=== PATIENT | male | born 1995 | race Caucasian/White ===

== ENCOUNTER 2025-02-23 21:49 | Emergency (ER) | payer SELFPAY ==
[~2025-02-23] VITALS: Ht 177.8 cm; Wt 109.0 kg
[2025-02-23 21:55] VITALS: TEMP 36.4; O2SAT 99
[2025-02-23 22:44] LABS: BASOPHILS % 0.6 % (0.0-2.0); EOSINOPHILS % 1.8 % (0.0-5.0); HEMATOCRIT. 40.7 % (42.0-52.0); HEMOGLOBIN. 13.8 g/dL (14.0-18.0); LYMPHOCYTES % 20.9 % (20.0-50.0); MEAN PLATELET VOLUME 8.9 fl (7.4-10.4); MONOCYTES % 7.2 % (2.0-8.0); NEUTROPHILS % 69.5 % (40.0-76.0); PLATELET 360 x1000/uL (130-400); RED BLOOD CELL COUNT 4.91 mill/uL (4.7-6.1); RED CELL DISTRIBUTION WIDTH 13.7 % (11.6-14.6)
[2025-02-23 23:01] LABS: CREATININE 0.8 mg/dL (0.6-1.3); UREA NITROGEN BLOOD 12 mg/dL (9-23)
[2025-02-23] MEDS: ONDANSETRON 4MG ODT PO ONE (23:13)
[2025-02-23] MEDS: MAGNESIUM/ALUMINUM HYDROXIDE/SIMETHICONE 30ML UDC PO ONE (23:13)
[2025-02-23] MEDS: DICYCLOMINE HCL 10MG CAPSULE PO ONE (23:13)
[2025-02-23 23:34] LABS: ASPARTATE AMINOTRANSFERASE 46 IU/L (<34); BILIRUBIN DIRECT 0.1 mg/dL (<=3.0); BILIRUBIN TOTAL 0.3 mg/dL (0.1-1.0); PROTEIN TOTAL 7.0 g/dL (6.0-8.3)
[2025-02-24] MEDS ORDERED: FAMO-135 MT (00:36)
[2025-02-24] MEDS ORDERED: MAG-55 MT (00:36)
[2025-02-24 00:53] VITALS: BP 127/90; PULSE 60; RESP 18; O2SAT 96
== END 2025-02-24 00:57 | disposition home or self-care (01) ==
LOC: ER 21:49
DX: K29.70 Gastritis, unspecified, without bleeding (principal)
CPT/HCPCS: 99284; 80076; 80048; 83690; 85025; 36415; Q0162

== ENCOUNTER 2025-03-22 10:31 | Emergency (ER) | payer MEDICAID ==
[~2025-03-22] VITALS: Ht 175.3 cm; Wt 108.0 kg
[~2025-03-22 10:31] MED LIST: FAMO-135 MT; MAG-55 MT
[2025-03-22 10:47] VITALS: O2SAT 99
[2025-03-22 12:08] LABS: BASOPHILS % 0.5 % (0.0-2.0); EOSINOPHILS % 1.9 % (0.0-5.0); HEMATOCRIT. 44.3 % (42.0-52.0); HEMOGLOBIN. 14.7 g/dL (14.0-18.0); LYMPHOCYTES % 15.0 % (20.0-50.0); MEAN PLATELET VOLUME 8.5 fl (7.4-10.4); MONOCYTES % 5.5 % (2.0-8.0); NEUTROPHILS % 77.1 % (40.0-76.0); PLATELET 389 x1000/uL (130-400); RED BLOOD CELL COUNT 5.37 mill/uL (4.7-6.1); RED CELL DISTRIBUTION WIDTH 13.3 % (11.6-14.6)
[2025-03-22 12:27] LABS: CREATININE 1.0 mg/dL (0.6-1.3); UREA NITROGEN BLOOD 13 mg/dL (9-23)
[2025-03-22 12:29] LABS: ASPARTATE AMINOTRANSFERASE 28 IU/L (<34); BILIRUBIN DIRECT < 0.1 mg/dL (<=3.0); BILIRUBIN TOTAL 0.3 mg/dL (0.1-1.0)
[2025-03-22 12:30] LABS: PROTEIN TOTAL 7.3 g/dL (6.0-8.3)
[2025-03-22 12:30] LABS: CLARITY URINE CLEAR (CLEAR); COLOR URINE YELLOW (YELLOW); GLUCOSE URINE NEGATIVE (NEGATIVE); KETONES URINE TRACE (NEGATIVE); LEUKOCYTE ESTERASE URINE NEGATIVE (NEGATIVE); NITRITE URINE NEGATIVE (NEGATIVE); OCCULT BLOOD URINE NEGATIVE (NEGATIVE); PH URINE 8.5 (4.5-8.0); PROTEIN URINE NEGATIVE (NEGATIVE); SPECIFIC GRAVITY URINE 1.022 (1.005-1.030); UROBILINOGEN URINE 0.2 E.U./dL (0.2-1.0)
[2025-03-22] MEDS: PANTOPRAZOLE 40MG DR TABLET PO ONE (12:40)
[2025-03-22] MEDS: SUCRALFATE 1G TABLET PO STA (12:40)
[2025-03-22] MEDS ORDERED: OMEP20TA23 MT (13:56)
[2025-03-22 14:31] VITALS: BP 116/63; PULSE 58; RESP 18; TEMP 36.8; O2SAT 99
== END 2025-03-22 14:57 | disposition home or self-care (01) ==
LOC: ER 10:31
DX: K29.70 Gastritis, unspecified, without bleeding (principal); Z98.890 Other specified postprocedural states
CPT/HCPCS: 36415; 74176; 76705; 80048; 80076; 81003; 85025; 99284